=== PATIENT | female | born 1985 | race Caucasian/White ===

== ENCOUNTER 2023-01-07 10:32 | Inpatient (IN) | payer BC, SELFPAY ==
[2023-01-07] VITALS (198 sets, daily range): BP systolic 49–171; BP diastolic 19–128; PULSE 49–171; TEMP 36.3–37.7; O2SAT 75–100; BMI 31.7
--- NOTE | 2023-01-07 11:50 | P.HP_ITS ---
H&P: HPI History of Present Illness Date/Time: 01/07/23 11:50 Chief Complaint: labor at term Narrative: a 37-year-old 2 para 0 103 last menstrual period was 323, EDC is 11/14/2011 confirmed by 10 week ultrasound who presents at 38 weeks gestation in active labor. She had a previous triplet which ended in section. She opts for trial labor after risks and benefits were rev iewed throughout the . She is negative for group B strep PMFSH Family History Family History Father Diabetes mellitus Grandparent Diabetes mellitus Other Acute myocardial infarction Social History Social History Substance use: never Spiritual care concerns: No Meds Home Medications and Allergies Home Medications Medication Instructions Recorded Confirmed Type vits no.126-ferrous fum 1 tablet PO DAILY 12/21/22 12/21/22 History 28 mg iron-folic acid 800 mcg tablet (Classic ) Allergies Allergy/AdvReac Type Severity Reaction Status Date / Time No Known Allergies Allergy Verified 12/21/22 15:31 Exam Const: General: cooperative, healthy appearing and comfortable Nutritional Appearance: average body habitus Orientation/consciousness: oriented to person, oriented to place and oriented to time HENMT: Head: normal to inspection Resp: Effort & Inspection: normal respiratory effort Cardio: Rate: regular rate Rhythm: regular rhythm Heart sounds: S1 normal heart sound present and S2 normal heart sound present GI: Inspection: normal to inspection ( gravid soft uterus) : External Female Exam: normal external appearance Speculum Exam - Vagina: normal appearance of the vagina ( minimal clear fluid) Speculum Exam - Cervix: normal appearance of the cervix ( closed. FHTs reassuring) Assessment and Plan Assessment and plan (1) Term : Code(s): Z34.90 - Encounter for supervision of normal , unspecified, unspecified trimester Status: Acute (2) Previous section: Code(s): Z98.891 - History of uterine scar from previous surgery Status: Acute Plan patient will undergo trial of labor after . Risks and benefits reviewed great detail. Replace an IUPC when possible begin Pitocin as she has no contractions presently. She is an epidural candidate
[2023-01-07] MEDS: fentaNYL CITRATE INJ (*CRX) 100 MCG/2 ML VIAL 50 MCG IV PUSH (11:59)
[2023-01-07 12:05] LABS: Basophils Percent Auto 0.2 % (0.2-1.2); Eosinophils Percent Auto 0.3 % (0-4.4); Hematocrit 37.9 % (37.0-47.0); Hemoglobin 12.5 g/dL (12.0-15.0); Immature Granulocyte Absolute 0.09 K/mm3 (0.00-0.031); Immature Granulocyte Percent A 0.9 % (0-0.5); Lymphocytes Absolute Auto 1.39 K/mm3 (0.9-3.2); Lymphocytes Percent Auto 13.5 % (18.3-44.2); Mean Corpuscular Volume 91.1 fl (80-100); Mean Platelet Volume 10.4 fl (7.4-10.4); Monocytes Absolute Auto 0.7 K/mm3 (0.1-0.6); Monocytes Percent Auto 6.4 % (2.6-8.5); Neutrophils Absolute Auto 8.1 K/mm3 (1.3-6.7); Neutrophils Percent Auto 78.7 % (45.5-73.1); Platelet Count Result 209 k/mm3 (150-375); Red Blood Count 4.16 M/mm3 (4.2-5.4); White Blood Count 10.3 K/mm3 (4.5-10.0)
[2023-01-07] MEDS: OXYTOCIN 30 UNITS/NS 500 ML 30 UNITS/500 ML BAG IV CONT (12:15)
--- NOTE | 2023-01-07 12:15 | LDADM ---
This patient, Tatiana Larose, was admitted to Labor/Delivery/Recovery 102 on 01/07/23 at 10:32. Plans for labor, pain management and were discussed with patient. Patient/family oriented to hospital policies and general routines including ID bracelet, bed and alarms, visiting hours, pain management, procedures, bathroom and other care routines, personal items, smoking policy, room service/diet and guest tray routines, infant security routines, and visiting hours. Patient/Family are encouraged to report perceived risks to care and to ask questions if they do not understand what they are told or what they should do. See OBIX for further documentation.
[2023-01-07] MEDS: LACTATED RINGERS 1,000 ML 125 ML IV CONT ×3 (12:34→22:01)
--- NOTE | 2023-01-07 12:43 | WPDANESEPP ---
Anes - Eval Pre Procedure Procedure: Labor epidural Date/Time: 01/07/23 12:43 Surgeon: shalom Preop Diagnosis: Abdominal pain with contractions Pre Op Diagnosis: [place] Patient Data Age: 37 Gender: F Height: 1.65 m Weight: 86.5 kg Last Vital Signs Pulse 94 01/07/23 12:35 BP 114/73 01/07/23 12:35 Pulse Ox 96 01/07/23 12:40 O2 Del Method Room Air 01/07/23 12:11 Allergies Allergy/AdvReac Type Severity Reaction Status Date / Time No Known Allergies Allergy Verified 12/21/22 15:31 Home Medications Medication Instructions Recorded Confirmed Type vits no.126-ferrous fum 1 tablet PO DAILY 12/21/22 12/21/22 History 28 mg iron-folic acid 800 mcg tablet (Classic ) Laboratory Tests 01/07/23 11:54 WBC 10.3 H K/mm3 (4.5-10.0) RBC 4.16 L M/mm3 (4.2-5.4) Hgb 12.5 g/dL (12.0-15.0) Hct 37.9 % (37.0-47.0) MCV 91.1 fl (80-100) MCH 30.0 pg (26-34) MCHC 33.0 g/dl (32-36) RDW 13.0 % (11.5-14.5) Plt Count 209 k/mm3 (150-375) MPV 10.4 fl (7.4-10.4) Immature Gran % (Auto) 0.9 H % (0-0.5) Neut % (Auto) 78.7 H % (45.5-73.1) Lymph % (Auto) 13.5 L % (18.3-44.2) [place] % (Auto) 6.4 % (2.6-8.5) Eos % (Auto) 0.3 % (0-4.4) Baso % (Auto) 0.2 % (0.2-1.2) Lymph # (Auto) 1.39 K/mm3 (0.9-3.2) [place] # (Auto) 0.7 H K/mm3 (0.1-0.6) Eos # (Auto) 0.0 K/mm3 (0-0.3) Baso # (Auto) 0.0 K/mm3 (0.0-0.1) Abs Immat Gran (auto) 0.09 H K/mm3 (0.00-0.031) Absolute Neuts (auto) 8.1 H K/mm3 (1.3-6.7) Absolute Nucleated RBC 0.0 K/mm3 (0.0-0.012) Nucleated RBC % 0.0 % (0.0-0.2) RPR Pending : gestational age HCG: positive Patient hx anesthesia problems: none Family hx anesthesia problems: none Results Review: All pre-operative results and documents have been reviewed as part of the pre-operative evaluation. [facility] Past Medical History Medical History Overweight (BMI 25.0-29.9) Term Surgical History Surgical History Previous section Family History Family History Father Diabetes mellitus Grandparent Diabetes mellitus Other Acute myocardial infarction Social History Social History Smoking status: Never smoker Second hand tobacco smoke exposure: No Substance use: never Lack of Transportation: No Lack of Food: Never True Current Housing: I Have Housing Concerned About Future Housing: No Difficulty Paying Gas/Electric Bills: No Difficulty Paying for Meds: No Currently Unemployed: No Education: Master's Degree or Higher Difficulty w/ Childcare or Family Care: No Spiritual care concerns: No Exam Day of Procedure 01/07/23 12:43 Patient weight: overweight Airway: Mallampati scale class II
[2023-01-07 14:54] LABS: Rapid Plasma Reagin Non-Reactive (NonReactive)
--- NOTE | 2023-01-07 17:55 | PM.OBPNLAB ---
Pain Control Date/time seen: 01/07/23 17:55 Pain control: tolerating well and epidural Pelvic Exam Dilation (cm): 2 Effacement (%): 60 station: -1 Amniotic membrane status: Leaking
--- NOTE | 2023-01-07 19:49 | PM.OBPNLAB ---
Pain Control Date/time seen: 01/07/23 19:49 Pain control: tolerating well and epidural Pelvic Exam Dilation (cm): 2 Effacement (%): 60 station: -1 Amniotic membrane status: Leaking Contractions Monitor mode: Internal
[2023-01-08] VITALS (47 sets, daily range): BP systolic 98–213; BP diastolic 51–184; PULSE 80–162; RESP 16–18; TEMP 36.3–37.3; O2SAT 85–100
--- NOTE | 2023-01-08 00:25 | PM.OBPRVD ---
OB - Vaginal Delivery Note Procedure Delivery date: 01/08/23 Induction method: None Delivery augmentation: Pitocin Delivery monitor: External FHT and Internal Uterine Route of delivery: Episiotomy description: None Laceration Description: Perineal - 1st Degree Delivery repair: vicryl Specimen: No Quantitative Blood Loss (ml): 60 Anesthesia type: Epidural Disposition: Floor [place] Baby Date of : 01/08/23 Time of : 00:08 Weeks of gestation at delivery: 38 Infant gender: Female presentation: vertex position: Right Occiput Anterior Placenta delivery description: Spontaneous Cord Vessel Description: 3 Vessels score one minute: 9 score five minutes: 9
--- NOTE | 2023-01-08 00:26 | PM.DS ---
DS: Admitting Diagnosis Discharge Date 01/09/23 Admitting Diagnosis Term /previous section DS: Discharge Diagnosis Discharge Diagnosis (1) Term : Code(s): Z34.90 - Encounter for supervision of normal , unspecified, unspecified trimester Status: Acute (2) Previous section: Code(s): Z98.891 - History of uterine scar from previous surgery Status: Acute DS: Summary Hospital Course Reason for hospitalization: patient was admitted at term in active labor. She did previous section Hospital Course: patient underwent spontaneous vaginal delivery with a successful on the early childhood assistant of 01/08/2023. Her hospital course unremarkable. Remained afebrile. She was up, voiding the difficulty, eating regular diet, ambulating, and generally without complaints. Time Spent with Patient Time attestation: Total time spent providing and/or coordinating discharge services: Exam Const: General: cooperative, healthy appearing and comfortable Nutritional Appearance: average body habitus Orientation/consciousness: oriented to person, oriented to place and oriented to time HENMT: Head: normal to inspection Resp: Effort & Inspection: normal respiratory effort Cardio: Rate: regular rate Rhythm: regular rhythm Heart sounds: S1 normal heart sound present and S2 normal heart sound present GI: Inspection: normal to inspection ( Fundus firm below the umbilicus) DS: Data Data Completed and Pending Labs on day of discharge: Labs from last 24 hours 01/07/23 11:54 WBC 10.3 H RBC 4.16 L Hgb 12.5 Hct 37.9 MCV 91.1 MCH 30.0 MCHC 33.0 RDW 13.0 Plt Count 209 MPV 10.4 Immature Gran % (Auto) 0.9 H Neut % (Auto) 78.7 H Lymph % (Auto) 13.[address] [place] % (Auto) 6.4 Eos % (Auto) 0.3 Baso % (Auto) 0.2 Lymph # (Auto) 1.39 [place] # (Auto) 0.7 H Eos # (Auto) 0.0 Baso # (Auto) 0.0 Abs Immat Gran (auto) 0.09 H Absolute Neuts (auto) 8.1 H Absolute Nucleated RBC 0.0 Nucleated RBC % 0.0 RPR Non-reactive Blood Type O Positive Antibody Screen Negative Discharge Plan Discharge Attending physician on discharge: Liam Shipman Discharging Clinician: Liam Shipman Patient Disposition: Home, Self-Care Activity: may shower and pelvic rest Diet: heart healthy Wound Care Instructions: follow printed instructions Patient Instructions: Antibiotic Form Stand Alone Forms: General Discharge Information Follow-up/Referrals: Liam Shipman MD [Physician] - Discharge Medications: No Action Classic 28 mg iron- 800 mcg Tablet 1 tablet PO DAILY Date of admission: 01/07/23 10:32 Primary Care Provider: PHYSICIAN,DIRECTOR FINANCIAL SERVICES Admitting Provider: Liam Shipman Attending physician on admission: Liam Shipman Condition: Stable
[2023-01-08] MEDS: OXYTOCIN 30 UNITS/NS 500 ML 30 UNITS/500 ML BAG IV CONT (00:45)
[2023-01-08] MEDS: WITCH HAZEL 40 PADS 1 PAD TOPICAL (02:41)
[2023-01-08] MEDS: BENZOCAINE 20% AER SPR (*SP) 56 GM CAN 1 SPRAY TOPICAL (02:42)
[2023-01-08] MEDS: IBUPROFEN 600 MG TABLET PO (02:48)
--- NOTE | 2023-01-08 02:53 | OBPPTRN ---
Patient transferred to post room # 284 via wheelchair. Support person present. Oriented to unit, room, information board, rooming in, admission packet and security measures. Patient verbalizes understanding.
--- NOTE | 2023-01-08 06:20 | PM.OBPNVD ---
OB - PN: Subj Subjective Date/time seen: 01/08/23 06:20 Patient comments: no complaints and pain well controlled baby status: doing well OB - PN: Obj Data Labs 01/07/23 11:54 Labs: Laboratory Results - last 24 hr 01/07/23 11:54 WBC 10.3 H RBC 4.16 L Hgb 12.5 Hct 37.9 MCV 91.1 MCH 30.0 MCHC 33.0 RDW 13.0 Plt Count 209 MPV 10.4 Immature Gran % (Auto) 0.9 H Neut % (Auto) 78.7 H Lymph % (Auto) 13.5 L [place] % (Auto) 6.4 Eos % (Auto) 0.3 Baso % (Auto) 0.2 Lymph # (Auto) 1.39 [place] # (Auto) 0.7 H Eos # (Auto) 0.0 Baso # (Auto) 0.0 Abs Immat Gran (auto) 0.09 H Absolute Neuts (auto) 8.1 H Absolute Nucleated RBC 0.0 Nucleated RBC % 0.0 RPR Non-reactive Blood Type O Positive Antibody Screen Negative OB - PN A/P Plan day: 0 Plan: routine care Time Spent With Patient Time: Total time spent is greater than 50% in coordination of care (as documented) at patient's floor/unit and/or counseling patient: Time with patient: less than 15 minutes Exam Const: General: cooperative, healthy appearing and comfortable Nutritional Appearance: average body habitus Orientation/consciousness: oriented to person, oriented to place and oriented to time Resp: Effort & Inspection: normal respiratory effort Cardio: Rate: regular rate Rhythm: regular rhythm Heart sounds: S1 normal heart sound present and S2 normal heart sound present GI: Inspection: normal to inspection
--- NOTE | 2023-01-08 13:36 | PC.NURSE ---
[id number] Introductions were made, then consulted with patient to assess needs related to . Discussed with mother her?plans to feed?her infant, the?experience so far, RN encouraging [id number] upright on chest, stimulating for wakefulness to breastfeed (changing diaper, massage touch, talking, etc). Resources provided for inpatient and outpatient services with the feeding sheet, mom/baby guide and name written on the communication board. Mother voiced understanding of information and will call if there is a request for assistance. Reported to the Primary RN. [phone] Consulted with patient to assess needs related to . Discussed with mother her successes, concerns and any questions she has. We reviewed working with the infant, supporting breast (we used the teacup hold), protecting her nipples with an optimal deep latch, good positioning, and good hand washing. Encouraged understanding the benefits of skin to skin, responding to feeding cues, frequencies of feeding 8-12 times in 24 hours (approximately 2-3 hours), duration of feedings, milk production, intake/output feeding sheet and signs of adequate intake encouraging swallowing at the breast. Reviewed positioning and alignment, supporting breast, off-centered (asymmetrical latch) and leading with the chin with big, open, wide gape. We allowed to practice in laid-back positioning at first, then latched optimally to the left breast in cross cradle position for a few sucks after paced-bottle feeding 5mls of EBM to the infant. We practiced this for a few attempts. Reviewed the pie demonstration to review what is assessed for infants appropriate intake. Recommended paced-bottle feeding when she does supplement rather than immediate filling of the stomach. The infant was not able to maintain latch. Nipple care reviewed with optimal latch, good positioning and using clean hands when touching her breast. Resources used to facilitate learning were used from the tool, mom and baby guide. Encouraged [id number] and responsive when there are feeding cues. Mother voiced understanding of the education shared, to call for assistance if the infant does not latch or if there is discomfort with .
--- NOTE | 2023-01-08 15:24 | PC.NURSE ---
[id number] Mother called RN to the room to assist with . Mother is pumping and states she attempted for 20 minutes and wouldn't latch. After mother pumped for a few minutes RN suggested possibly attempting to latch infant to the breast. Using a teacup hold infant latched to the left breast a few times and one latch was a few sucks with eyes opening with a swallow, then infant stopped. Mother is pumping the left breast and complains of pain with cramping. Primary RN is called for some ibuprofen since mother states she hasn't had any for a while. Mother stops pumping. With a history of having triplets previously in the NICU mother is struggling with the laid-back style and wants her fed. Mother voiced understanding of the paced bottle feeding as an option. Primary RN is present. Mother is getting up to use the restroom and voiced understanding that RN will check in with her tomorrow.
[2023-01-08] MEDS: DOCUSATE SODIUM 100 MG CAPSULE PO (20:00)
[2023-01-08] MEDS: POLYSACCHARIDE IRON COMPLEX 150 MG CAPSULE PO (20:00)
[2023-01-09 04:00] VITALS: BP 93/56; PULSE 84; RESP 16; TEMP 36.7; O2SAT 99
[2023-01-09 05:08] LABS: Hematocrit 31.9 % (37.0-47.0); Hemoglobin 10.4 g/dL (12.0-15.0)
--- NOTE | 2023-01-09 06:36 | PM.OBPNVD ---
OB - PN: Subj Subjective Date/time seen: 01/09/23 06:36 Patient comments: no complaints and pain well controlled baby status: doing well OB - PN: Obj Data Labs 01/09/23 04:09 Labs: Laboratory Results - last 24 hr 01/09/23 04:09 Hgb 10.4 L Hct 31.9 L OB - PN A/P Plan day: 1 Plan: routine care, discharge home and follow up 6 weeks Time Spent With Patient Time: Total time spent is greater than 50% in coordination of care (as documented) at patient's floor/unit and/or counseling patient: Time with patient: less than 15 minutes Exam Const: General: cooperative, healthy appearing and comfortable Nutritional Appearance: average body habitus Orientation/consciousness: oriented to person, oriented to place and oriented to time Resp: Effort & Inspection: normal respiratory effort GI: Inspection: normal to inspection ( fundus firm below the umbilicus)
[2023-01-09] MEDS: IBUPROFEN 600 MG TABLET PO (07:32)
[2023-01-09] MEDS: MULTIVIT/MIN/PREN/FOL AC/IRON TABLET 1 TAB PO (07:32)
[2023-01-09 08:54] VITALS: BP 107/78; PULSE 98; RESP 18; TEMP 36.6; O2SAT 97
[2023-01-10 08:34] VITALS: BP 117/77; PULSE 77; RESP 18; TEMP 37.2; O2SAT 99
== END 2023-01-09 10:32 | disposition home or self-care (01) | DRG 807 ==
LOC: ANHLDR 01-08 00:28 → ANHOB2 01-08 02:56
PROVIDERS: Admitting Provider Obstetrics & Gynecology; Visit Provider Obstetrics & Gynecology
DX: O34.211 Maternal care for low transverse scar from previous cesarean delivery (principal); Z37.0 Single live birth; Z3A.38 38 weeks gestation of pregnancy; O70.0 First degree perineal laceration during delivery
CPT/HCPCS: 36415; 84112; 85014; 85018; 85025; 86592; 86850; 86900; 86901; A9270; J2590; J2795; J3010; J7120